=== PATIENT | female | born 1965 | race Caucasian/White ===

== ENCOUNTER → 2023-04-26 07:55 | Outpatient (REF) | payer BC, SELFPAY | LOC: WDC 07:55 | PROVIDERS: ATTENDING PHYSICIAN Obstetrics & Gynecology Gynecology; FAMILY PHYSICIAN Family Medicine | DX: Z12.31 Encounter for screening mammogram for malignant neoplasm of breast (principal) | CPT/HCPCS: 77063; 77067 ==

== ENCOUNTER → 2023-10-26 19:56 | Outpatient (REF) | payer BC, SELFPAY | LOC: MRI 3T 19:56 | PROVIDERS: ATTENDING PHYSICIAN Obstetrics & Gynecology Gynecology; FAMILY PHYSICIAN Nurse Practitioner Family | DX: Z15.01 Genetic susceptibility to malignant neoplasm of breast (principal); Z80.3 Family history of malignant neoplasm of breast | CPT/HCPCS: 77049; A9585 ==

== ENCOUNTER → 2024-01-18 06:20 | Day surgery (SDC) | payer BC, SELFPAY ==
[2024-01-18 07:23] LABS: Glucose - Point of Care 115 mg/dl (70-99)
== END ==
LOC: GI 06:20
PROVIDERS: ATTENDING PHYSICIAN Internal Medicine
DX: Z12.11 Encounter for screening for malignant neoplasm of colon (principal); K63.5 Polyp of colon; K64.8 Other hemorrhoids; Z86.0100 Personal history of colon polyps, unspecified
CPT/HCPCS: 45380; 88305; 82962

== ENCOUNTER → 2024-04-27 07:39 | Outpatient (REF) | payer BC, SELFPAY | LOC: WDC 07:39 | PROVIDERS: ATTENDING PHYSICIAN Obstetrics & Gynecology Gynecology; FAMILY PHYSICIAN Nurse Practitioner Family | DX: Z12.31 Encounter for screening mammogram for malignant neoplasm of breast (principal) | CPT/HCPCS: 77063; 77067 ==

== ENCOUNTER → 2024-09-22 08:14 | Outpatient (REF) | payer BC, SELFPAY | LOC: RAD 08:14 | PROVIDERS: ATTENDING PHYSICIAN Internal Medicine; FAMILY PHYSICIAN Nurse Practitioner Family | DX: R19.8 Other specified symptoms and signs involving the digestive system and abdomen (principal) | CPT/HCPCS: 74019 ==

== ENCOUNTER → 2024-09-27 09:11 | Outpatient (REF) | payer BC, SELFPAY | LOC: RAD 09:11 | PROVIDERS: ATTENDING PHYSICIAN Nurse Practitioner Family | DX: M79.605 Pain in left leg (principal) | CPT/HCPCS: 93971 ==